=== PATIENT | male | born 1970 | race Caucasian/White ===

== ENCOUNTER 2017-05-28 10:00 | Emergency (ER) | payer BC ==
[2017-05-28] MEDS ORDERED: Sodium Chloride 0.9% 10 ML Syringe FLUSH PRN (10:30)
--- NOTE | 2017-05-28 10:51 | EDM.PDOC ---
ED HPI GENERAL MEDICAL PROBLEM - General Chief Complaint: Chest Pain Stated Complaint: CHEST PAIN Time Seen by Provider: 05/28/17 10:40 Source of Information: Reports: Patient, Family ( + daughter), RN Notes Reviewed History Limitations: Reports: No Limitations - History of Present Illness INITIAL COMMENTS - FREE TEXT/NARRATIVE: The patient states that he developed left-sided chest pain, crampy in character , like a sore muscle, this past 05/25/2017, after he helped his sister move furniture. The pain is present only if he moves either arm, twists his torso, or takes a deep breath. He has no pain if he remains still. He denies having dyspnea, nausea, or sense of impending doom. He states that he has been diaphoretic at night recently. He also reports that he had diarrhea today. No recent constipation or urinary symptoms. No prior similar symptoms. The patient states that he took some aspirin this morning, which may have helped. The patient's PCP is Dr. Carver. Treatments FIELD [employer] II FARM[employer]: Reports: Aspirin Middle Chest Pain Score (Numeric/FACES): 5 - Related Data Allergies Allergy/AdvReac Type Severity Reaction Status Date / Time No Known Allergies Allergy Verified 05/28/17 10:06 Home Meds: Home Meds . [No Known Home Meds] 05/28/17 [History] Past Medical History - Past Surgical History HEENT Surgical History: Reports: Oral Surgery ([place] teeth extraction) Musculoskeletal Surgical History: Reports: Arthroscopic Procedure (right knee) Social & Family History - Tobacco Use Smoking Status *Q: Never Smoker - Caffeine Use Caffeine Use: Reports: Soda - Alcohol Use Alcohol Use History: Yes Alcohol Use Frequency: Socially - Recreational Drug Use Recreational Drug Use: No - Living Situation & Occupation Living situation: Reports: , with Spouse, with Family (4 kids) Occupation: Employed (Care Analyst) ED ROS GENERAL - Review of Systems Review Of Systems: See Below Constitutional: Reports: No Symptoms HEENT: Reports: No Symptoms Respiratory: Reports: No Symptoms Cardiovascular: Reports: No Symptoms Endocrine: Reports: No Symptoms GI/Abdominal: Reports: No Symptoms : Reports: No Symptoms Musculoskeletal: Reports: No Symptoms Skin: Reports: No Symptoms Neurological: Reports: No Symptoms Psychiatric: Reports: No Symptoms Hematologic/Lymphatic: Reports: No Symptoms Immunologic: Reports: No Symptoms ED EXAM, GENERAL - Physical Exam Exam: See Below Exam Limited By: No Limitations General Appearance: Alert, WD/WN, No Apparent Distress Eye Exam: Bilateral Eye: Normal Inspection Ears: Normal External Exam, Hearing Grossly Normal Nose: Normal Inspection, No Blood Throat/Mouth: Normal Inspection, Normal Lips, Normal Voice, No Airway Compromise Head: Atraumatic, Normocephalic Neck: Normal Inspection, Full Range of Motion Respiratory/Chest: No Respiratory Distress, Lungs Clear, Normal Breath Sounds, No Accessory Muscle Use, Chest Non-Tender, Other (Pain is inducible with crossing his left arm across his chest, or twisting his torso to either the left or right) Cardiovascular: Normal Peripheral Pulses, Regular Rate, Rhythm, No Gallop, No JVD, No Murmur, No Rub GI/Abdominal: Normal Bowel Sounds, Soft, Non-Tender, No Organomegaly, No Distention, No Abnormal Bruit, No Mass (Male) Exam: Deferred Rectal (Males) Exam: Deferred Back Exam: Normal Inspection, Full Range of Motion, NT Extremities: Normal Inspection, Normal Range of Motion, No Pedal Edema, Normal Capillary Refill Neurological: Alert, Oriented, Normal Cognition, No Motor/Sensory Deficits Psychiatric: Normal Affect Skin Exam: Warm, Dry, Intact, Normal Color, No Rash Lymphatic: No Adenopathy EKG INTERPRETATION EKG Date: 05/28/17 Time: 10:16 Rhythm: Other (Sinus bradycardia) Rate (Beats/Min): 58 Gile: Normal P-Wave: Present QRS: Normal ST-T: Normal QT: Normal Comparison: NA - No Prior EKG Course - Vital Signs Last Recorded V/S: Last Vital Signs Temp 37.2 C 05/28/17 12:26 Pulse 70 05/28/17 12:26 Resp 13 05/28/17 12:26 BP 127/83 05/28/17 12:26 Pulse Ox 100 05/28/17 12:26 - Orders/Labs/Meds Orders: Active Orders 24 hr Category Date Time Status Cardiac Monitoring [RC] . DIRECTED Care 05/28/17 10:27 Active EKG 12 Lead [EKG Documentation Completion] [RC] STAT Care 05/28/17 10:26 Active Saline Lock Insert [OM.PC] Routine Oth 05/28/17 10:30 Ordered Labs: Laboratory Tests 05/28/17 05/28/17 05/28/17 Range/Units 10: 10:17 10:17 WBC 4.82 (4.23-9.07) K/mm3 RBC 5.07 (4.63-6.08) M/mm3 Hgb 16.2 (13.7-17.5) gm/L Hct 47.0 (40.1-51.0) % MCV 92.7 H (79.0-92.2) fl MCH 32.0 (25.7-32.2) pg MCHC 34.5 (32.2-35.5) g/dl RDW Std Deviation 41.1 (35.1-43.9) fL Plt Count 201 (163-337) K/mm3 MPV 10.9 (9.4-12.3) fl Neut % (Auto) 46.5 (34.0-67.9) % Lymph % (Auto) 38.6 (21.8-53.1) % [facility] % (Auto) 9.1 (5.3-12.2) % Eos % (Auto) 4.8 (0.8-7.0) Baso % (Auto) 1.0 (0.1-1.2) % Neut # (Auto) 2.24 (1.78-5.38) K/mm3 Lymph # (Auto) 1.86 (1.32-3.57) K/mm3 [facility] # (Auto) 0.44 (0.30-0.82) K/mm3 Eos # (Auto) 0.23 (0.04-0.54) K/mm3 Baso # (Auto) 0.05 (0.01-0.08) K/mm3 PT 9.7 (8.0-13.0) SECONDS INR 0.90 CK-MB (CK-2) < 0.5 (0-3.6) ng/ml Troponin I < 0.017 (0.00-0.056) ng/mL Meds: Medications Discontinued Medications Generic Name Dose Route Start Last Admin Trade Name Freq PRN Reason Stop Dose Admin Sodium Chloride 10 ml 05/28/17 10:30 05/28/17 10:53 Saline Flush FLUSH 10 ml ASDIRECTED PRN Administration Keep Vein Open - Re-Assessments/Exams Free Text/Narrative Re-Assessment/Exam: 05/28/17 10:51 Two-view chest radiograph appears to be grossly normal. Cardiac silhouette is within normal limits. No pulmonary vascular congestion. No pleural effusions. No focal infiltrate. No pneumothorax. Formal read per the Radiologist pending. 05/28/17 12:00 Test results discussed with the patient, his , and daughter. Today's workup is entirely unremarkable. Based on the patient's history and physical examination, his left-sided chest pain is musculoskeletal in etiology, likely due to a muscle that he strained when he was helping his sister move over the weekend. I offered to prescribe muscle relaxant, but he declined. I am recommending he take [id number] ibuprofen. Departure - Departure Time of Disposition: 12:02 Disposition: Home, Self-Care 01 Condition: Good Clinical Impression: Musculoskeletal chest pain - Discharge Information Instructions: Nonspecific Chest Pain, [id number] Referrals: Lino Carver MD [Primary Care Provider] - Forms: ED Department Discharge Additional Instructions: You were seen in the emergency room for left-sided chest pain. Workup in the ER included blood work, an ECG, and a chest x-ray. Your entire workup was unremarkable. You have not had a heart attack. You do not have a collapsed lung or pneumonia. Your chest pain is MOST LIKELY due to a strained muscle. We recommend you take [id number] ibuprofen as needed for discomfort. We recommend you notify Dr. Carver of today's ER visit. If any other problems, please do not hesitate to return to the ER. - My Orders Last 24 Hours: My Active Orders 05/28/17 10:26 EKG 12 Lead [EKG Documentation Completion] [RC] STAT 05/28/17 10:27 Cardiac Monitoring [RC] . DIRECTED 05/28/17 10:30 Saline Lock Insert [OM.PC] Routine - Assessment/Plan Last 24 Hours: My Active Orders 05/28/17 10:26 EKG 12 Lead [EKG Documentation Completion] [RC] STAT 05/28/17 10:27 Cardiac Monitoring [RC] . DIRECTED 05/28/17 10:30 Saline Lock Insert [OM.PC] Routine
--- NOTE | 2017-05-28 11:27 | CR ---
Chest: Portable view of the chest was obtained. Comparison: No previous study. Heart size and mediastinum are normal. Lungs are clear. Bony structures are grossly intact. Impression: 1. Nothing acute is identified on portable chest x-ray. Diagnostic code #1
[2017-05-28 12:30] VITALS: BP 127/83
== END 2017-05-28 12:29 | disposition home or self-care (01) ==
LOC: JD.ED 10:00
DX: R07.89 Other chest pain (principal)
CPT/HCPCS: 36415; 71010; 82553; 84484; 85025; 85610; 93005; 99285; J7050; 99284

== ENCOUNTER 2021-06-28 07:00 | Day surgery (SDC) | payer BC ==
[~2021-06-28 07:00] MED LIST: Lactated Ringers 1,000 ML IV SCH; Lidocaine 1%/Sod Bicarbonate in NS 8.4% 1 ML Syringe IDERM PRN; Sodium Chloride 0.9% 10 ML Syringe FLUSH PRN
--- NOTE | 2021-06-28 07:18 | PCM.PREANE ---
Preanesthetic Assessment - Anesthesia/Transfusion/Family Hx Anesthesia History: Prior Anesthesia Without Reaction Family History of Anesthesia Reaction: No Transfusion History: No Prior Transfusion(s) - Review of Systems General: Other (covid negative, ETOH abuse 30+beers per week) Pulmonary: No Symptoms Cardiovascular: No Symptoms Gastrointestinal: Other (states food gets stuck in his throat sometimes) Neurological: No Symptoms Other: Reports: None - Physical Assessment NPO Status Date: 06/28/21 NPO Status Time: 05:00 (finished prep) ASA Class: 2 Mental Status: Alert & Oriented x3 Airway Class: Mallampati = 2 Dentition: Reports: Normal Dentition Thyro-Mental Finger Breadths: 3 Mouth Opening Finger Breadths: 3 ROM/Head Extension: Full Lungs: Clear to Auscultation, Normal Respiratory Effort Cardiovascular: Regular Rate, Regular Rhythm - Allergies Allergies/Adverse Reactions: Allergies Allergy/AdvReac Type Severity Reaction Status Date / Time No Known Allergies Allergy Verified 06/27/21 13:41 - Blood Blood Available: No Product(s) Available: None - Anesthesia Plan Pre-Op Medication Ordered: None - Acknowledgements Anesthesia Type Planned: MAC Pt an Appropriate Candidate for the Planned Anesthesia: Yes Alternatives and Risks of Anesthesia Discussed w Pt/Guardian: Yes Pt/Guardian Understands and Agrees with Anesthesia Plan: Yes PreAnesthesia Questionnaire - Past Health History Medical/Surgical History: Denies Medical/Surgical History Gastrointestinal History: Reports: Other (See Below) Other Gastrointestinal History: bloody stools - Past Surgical History HEENT Surgical History: Reports: Oral Surgery Musculoskeletal Surgical History: Reports: Arthroscopic Procedure Other Musculoskeletal Surgeries/Procedures:: knee surgery, torn meniscus - SUBSTANCE USE Tobacco Use Status *Q: Never Tobacco User Recreational Drug Use History: No - HOME MEDS Home Medications: Home Meds . [No Known Home Meds] 05/28/17 [History] - CURRENT (IN HOUSE) MEDS Current Meds: Current Medications Lactated Ringer's (Ringers, Lactated) 1,000 mls @ 125 mls/hr IV ASDIRECTED BHAVYA Stop: 06/28/21 23:00 Lidocaine/Sodium Bicarbonate (Lidocaine 1%/Sod Bicarbonate In Ns 8.4% 1 Ml Syringe) 0.25 ml IDERM ONETIME PRN PRN Reason: Prior to IV Start Stop: 06/28/21 18:00 Sodium Chloride (Sodium Chloride 0.9% 10 Ml Syringe) 10 ml FLUSH ASDIRECTED PRN PRN Reason: Keep Vein Open Stop: 06/28/21 18:00
[2021-06-28] MEDS ORDERED: Midazolam 1 MG/ML 2 ML SDV ONE (07:24)
[2021-06-28] MEDS ORDERED: fentaNYL 100 MCG/2 ML SDV ONE (07:24)
[2021-06-28] MEDS ORDERED: Propofol 200 MG/20 ML SDV ONE ×2 (07:24→08:37)
--- NOTE | 2021-06-28 09:07 | PCM48HPAN ---
Post Anesthesia Note - EVALUATION WITHIN 48HRS OF ANESTHETIC Vital Signs in Normal Range: Yes Patient Participated in Evaluation: Yes Respiratory Function Stable: Yes Airway Patent: Yes Cardiovascular Function Stable: Yes Hydration Status Stable: Yes Pain Control Satisfactory: Yes Nausea and Vomiting Control Satisfactory: Yes Mental Status Recovered: Yes Vital Signs: Last Vital Signs Temp 36.7 C 06/28/21 07:20 Pulse 59 L 06/28/21 07:20 Resp 16 06/28/21 07:20 BP 144/84 H 06/28/21 07:20 Pulse Ox 98 06/28/21 07:20
--- NOTE | 2021-06-28 09:07 | PCM.PRNOTE ---
- Free Text/Narrative Note: Date: 06/28/2021 Procedure: diagnostic colonoscopy Indication: rectal bleeding Endoscopist: Jovany Onofre MD Findings: good prep. Cecum reached. Six polyps identified and removed- one was nearly 3 cm in span and appeared worrisome for dysplasia or early malignancy, approximately 18 cm from the verge. Another 1.5 cm pedunculated polyp was removed just a few cm distal to the larger polyp. Detailed Report: The patient was taken to the endoscopy suite and placed in left lateral decubitus position. Timeout was performed and monitored anesthesia care was initiated. The anus appeared normal. Digital rectal exam was unremarkable. The colonoscope was inserted and advanced towards the cecum. Near the rectosi gmoid junction, an obvious large worrisome appearing polyp was identified. The scope was advanced all the way to the cecum with ease and the appendiceal orifice and ileocecal valve were visualized. The scope was slowly withdrawn and mucosal surfaces carefully inspected. Bowel prep was very good. In the ascending colon, a small subcentimeter polyp was identified and removed using the hot snare. A similar appearing polyp was identified in the transverse colon and removed in identical fashion. In the sigmoid colon, a small pedunculated polyp was identified and removed entirely with jumbo forceps. At approximately 18 cm from the anal verge, a large broad-based multilobular polyp was identified. Size was estimated at about 3 cm in span. Hot snare polypectomy technique was used to remove the majority of this polyp and the specimen was retrieved successfully. Several bites of polypoid appearing mucosa around the base of the resection site were obtained and sent along with the specimen. The snare tip was then used to cauterize the surrounding abnormal tissue. 1 to 2 cm distal to this, a larger pedunculated polyp was identified and removed entirely using hot snare polypectomy technique. Surrounding polypoid appearing mucosa near the stalk was fulgurated. Air was suctioned from the distal colon and rectum prior to withdrawal of the scope. No diverticular or hemorrhoidal di sease was appreciated. The patient tolerated the procedure well.
[2021-06-28 15:09] VITALS: BP 120/82; PULSE 50
== END 2021-06-28 10:20 | disposition home or self-care (01) ==
LOC: JD.SDS 07:00
PROVIDERS: ATTEND Surgery
DX: C18.7 Malignant neoplasm of sigmoid colon (principal); D12.3 Benign neoplasm of transverse colon; D12.5 Benign neoplasm of sigmoid colon; D12.8 Benign neoplasm of rectum; K51.40 Inflammatory polyps of colon without complications; Z98.890 Other specified postprocedural states
CPT/HCPCS: 45380; 45385; J2250; J2704; J3010; J7120; 00811

== ENCOUNTER 2021-07-26 09:46 | Day surgery (SDC) | payer BC ==
--- NOTE | 2021-07-25 08:28 | PCM.PREANE ---
Preanesthetic Assessment - Procedure Proposed Procedure: Diagnostic Colonoscopy (with prior finding of colon adenocarcinoma.) - Anesthesia/Transfusion/Family Hx Anesthesia History: Prior Anesthesia Without Reaction Family History of Anesthesia Reaction: No Transfusion History: No Prior Transfusion(s) Intubation History: Unknown - Review of Systems Pulmonary: No Symptoms (ETOH abuse: 30+ beers per week./ COVID Exposure:) Gastrointestinal: Abdominal Pain, Difficulty Swallowing - Physical Assessment NPO Status Date: 07/25/21 Vital Signs: HR: SAT: TEMP: B/P: RESP: ASA Class: 2 Mental Status: Alert & Oriented x3 - Lab Values: All labs reviewed and noted and within acceptable ranges to proceed with scheduled procedure. - Allergies Allergies/Adverse Reactions: Allergies Allergy/AdvReac Type Severity Reaction Status Date / Time No Known Allergies Allergy Verified 06/27/21 13:41 - Anesthesia Plan Pre-Op Medication Ordered: None - Acknowledgements Anesthesia Type Planned: MAC Pt an Appropriate Candidate for the Planned Anesthesia: Yes Alternatives and Risks of Anesthesia Discussed w Pt/Guardian: Yes Pt/Guardian Understands and Agrees with Anesthesia Plan: Yes PreAnesthesia Questionnaire - Past Health History Medical/Surgical History: Denies Medical/Surgical History Gastrointestinal History: Reports: Other (See Below) Other Gastrointestinal History: bloody stools - Past Surgical History HEENT Surgical History: Reports: Oral Surgery Musculoskeletal Surgical History: Reports: Arthroscopic Procedure Other Musculoskeletal Surgeries/Procedures:: knee surgery, torn meniscus - HOME MEDS Home Medications: Home Meds . [No Known Home Meds] 05/28/17 [History] - CURRENT (IN HOUSE) MEDS Current Meds: Current Medications Lactated Ringer's (Ringers, Lactated) 1,000 mls @ 125 mls/hr IV ASDIRECTED BHAVYA Stop: 07/26/21 23:00 Lidocaine/Sodium Bicarbonate (Lidocaine 1%/Sod Bicarbonate In Ns 8.4% 1 Ml Syringe) 0.25 ml IDERM ONETIME PRN PRN Reason: Prior to IV Start Stop: 07/26/21 18:00 Sodium Chloride (Sodium Chloride 0.9% 10 Ml Syringe) 10 ml FLUSH ASDIRECTED PRN PRN Reason: Keep Vein Open Stop: 07/26/21 18:00 Discontinued Medications Lactated Ringer's (Ringers, Lactated) 1,000 mls @ 125 mls/hr IV ASDIRECTED BHAVYA Stop: 07/17/21 23:00 Lidocaine/Sodium Bicarbonate (Lidocaine 1%/Sod Bicarbonate In Ns 8.4% 1 Ml Syringe) 0.25 ml IDERM ONETIME PRN PRN Reason: Prior to IV Start Stop: 07/17/21 18:00 Sodium Chloride (Sodium Chloride 0.9% 10 Ml Syringe) 10 ml FLUSH ASDIRECTED PRN PRN Reason: Keep Vein Open Stop: 07/17/21 18:00
[~2021-07-26 09:46] MED LIST changes: +Lidocaine 1% 4 ML ONE; +Midazolam 1 MG/ML 2 ML SDV ONE; +Propofol 200 MG/20 ML SDV ONE; +fentaNYL 100 MCG/2 ML SDV ONE
--- NOTE | 2021-07-26 10:56 | PCM.PREANE ---
Preanesthetic Assessment - Procedure Proposed Procedure: colonoscopy - Anesthesia/Transfusion/Family Hx Anesthesia History: Prior Anesthesia Without Reaction Family History of Anesthesia Reaction: No Transfusion History: No Prior Transfusion(s) Intubation History: Unknown - Review of Systems General: No Symptoms Pulmonary: No Symptoms Cardiovascular: No Symptoms Gastrointestinal: No Symptoms Neurological: No Symptoms Other: Reports: None - Physical Assessment NPO Status Date: 07/26/21 NPO Status Time: 07:00 (prep) Vital Signs: Last Vital Signs Temp 98.1 F 07/26/21 10:00 Pulse 66 07/26/21 10:00 Resp 16 07/26/21 10:00 BP 139/90 07/26/21 10:00 Pulse Ox 96 07/26/21 10:00 Height: 5 ft 6 in Weight: 84.822 kg ASA Class: 2 Mental Status: Alert & Oriented x3 Airway Class: Mallampati = 1 Dentition: Reports: Normal Dentition Thyro-Mental Finger Breadths: 3 Mouth Opening Finger Breadths: 3 ROM/Head Extension: Full Lungs: Clear to Auscultation, Normal Respiratory Effort Cardiovascular: Regular Rate, Regular Rhythm - Allergies Allergies/Adverse Reactions: Allergies Allergy/AdvReac Type Severity Reaction Status Date / Time No Known Allergies Allergy Verified 07/26/21 10:42 - Blood Blood Available: No - Acknowledgements Anesthesia Type Planned: MAC Pt an Appropriate Candidate for the Planned Anesthesia: Yes Alternatives and Risks of Anesthesia Discussed w Pt/Guardian: Yes Pt/Guardian Understands and Agrees with Anesthesia Plan: Yes PreAnesthesia Questionnaire - Past Health History Medical/Surgical History: Denies Medical/Surgical History Cardiovascular History: Reports: None Respiratory History: Reports: None Gastrointestinal History: Reports: Other (See Below) Other Gastrointestinal History: bloody stools Musculoskeletal History: Reports: None Endocrine/Metabolic History: Reports: None - Past Surgical History HEENT Surgical History: Reports: Oral Surgery GI Surgical History: Reports: Colonoscopy Musculoskeletal Surgical History: Reports: Arthroscopic Procedure Other Musculoskeletal Surgeries/Procedures:: knee surgery, torn meniscus - SUBSTANCE USE Tobacco Use Status *Q: Never Tobacco User Tobacco Use Within Last Twelve Months: No Second Hand Smoke Exposure: No Days Per Week of Alcohol Use: 7 Number of Drinks Per Day: 5 (beer) Total Drinks Per Week: 35 - HOME MEDS Home Medications: Home Meds . [No Known Home Meds] 05/28/17 [History] - CURRENT (IN HOUSE) MEDS Current Meds: Current Medications Lactated Ringer's (Ringers, Lactated) 1,000 mls @ 125 mls/hr IV ASDIRECTED BHAVYA Stop: 07/26/21 23:00 Last Admin: 07/26/21 10:48 Dose: 125 mls/hr Documented by: Lidocaine/Sodium Bicarbonate (Lidocaine 1%/Sod Bicarbonate In Ns 8.4% 1 Ml Syringe) 0.25 ml IDERM ONETIME PRN PRN Reason: Prior to IV Start Stop: 07/26/21 18:00 Sodium Chloride (Sodium Chloride 0.9% 10 Ml Syringe) 10 ml FLUSH ASDIRECTED PRN PRN Reason: Keep Vein Open Stop: 07/26/21 18:00 Discontinued Medications Fentanyl (Fentanyl 100 Mcg/2 Ml Sdv) Confirm Administered Dose 100 mcg .ROUTE .STK-MED ONE Stop: 07/26/21 07:10 Lactated Ringer's (Ringers, Lactated) 1,000 mls @ 125 mls/hr IV ASDIRECTED [facility] Stop: 07/17/21 23:00 Lidocaine HCl (Xylocaine-Mpf 1%) Confirm Administered Dose 4 mls @ as directed .ROUTE .STK-MED ONE Stop: 07/26/21 07:09 Lidocaine/Sodium Bicarbonate (Lidocaine 1%/Sod Bicarbonate In Ns 8.4% 1 Ml Syringe) 0.25 ml IDERM ONETIME PRN PRN Reason: Prior to IV Start Stop: 07/17/21 18:00 Midazolam HCl (Midazolam 1 Mg/Ml 2 Ml Sdv) Confirm Administered Dose 2 mg .ROUTE .STK-MED ONE Stop: 07/26/21 07:10 Propofol (Propofol 200 Mg/20 Ml Sdv) Confirm Administered Dose 200 mg .ROUTE .STK-MED ONE Stop: 07/26/21 07:09 Sodium Chloride (Sodium Chloride 0.9% 10 Ml Syringe) 10 ml FLUSH ASDIRECTED PRN PRN Reason: Keep Vein Open Stop: 07/17/21 18:00
[2021-07-26] MEDS ORDERED: Propofol 200 MG/20 ML SDV ONE ×2 (11:13→11:27)
--- NOTE | 2021-07-26 11:42 | PCM48HPAN ---
Post Anesthesia Note - EVALUATION WITHIN 48HRS OF ANESTHETIC Vital Signs in Normal Range: Yes Patient Participated in Evaluation: Yes Respiratory Function Stable: Yes Airway Patent: Yes Cardiovascular Function Stable: Yes Hydration Status Stable: Yes Pain Control Satisfactory: Yes Nausea and Vomiting Control Satisfactory: Yes Mental Status Recovered: Yes Vital Signs: Last Vital Signs Temp 98.1 F 07/26/21 10:00 Pulse 66 07/26/21 10:00 Resp 16 07/26/21 10:00 BP 139/90 07/26/21 10:00 Pulse Ox 96 07/26/21 10:00 1137 73 16 98.7 94% 122/77
--- NOTE | 2021-07-26 11:44 | PCM.PRNOTE ---
- Free Text/Narrative Note: Date: 07/26/2021 Procedure: repeat colonoscopy Indication: assessment and marking of site of colon cancer arising within tubulovillous adenoma approximately 18-20 cm from the anal verge Endoscopist: Jovany Onofre MD Findings: Prep was adequate. The colonoscope was advanced to the cecum. The terminal ileum was intubated. 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 Additional biopsies of abnormal tissue were obtained with cold forceps and tattoo ink was injected just distal to the site of concern. Detailed Report: The patient was taken to the endoscopy suite and placed in left lateral decubitus position. Timeout was performed and monitored anesthesia care was initiated. The colonoscope was inserted into the anus and advanced to the cecum. Because the patient's staging work-up included a CT scan of the abdomen which raised the question of a soft tissue mass in the cecum, the area was investigated again endoscopically. No abnormalities were noted within the cecum, same as prior. Scope was withdrawn to the sigmoid and surfaces were carefully inspected as we approached the area of prior tubulovillous adenoma resection. This site was apparent, and measured right at about 20 cm from the anal verge. The tissue appeared abnormal, and an additional biopsy specimen was obtained using cold forceps. Tattoo ink was then injected just distal to the site of the lesion. It was difficult to obtain a satisfactory submucosal wheal right at the site, so a good submucosal wheal was created with tattoo ink at the opposite side of the lesion. Air was suctioned from the colon and the scope was withdrawn. The patient tolerated the procedure well.
[2021-07-26 12:23] VITALS: BP 122/79; PULSE 88
== END 2021-07-26 12:20 | disposition home or self-care (01) ==
LOC: JD.SDS 09:46
PROVIDERS: ATTEND Surgery
DX: C18.9 Malignant neoplasm of colon, unspecified (principal)
CPT/HCPCS: 45380; 45381; J2250; J2704; J3010; J7120; 00811